=== PATIENT | female | born 1930 | race Caucasian/White ===

== ENCOUNTER 2017-07-21 08:18 | Emergency (ER) | payer MEDICARE, MEDICAID ==
[~2017-07-21] VITALS: Ht 152.4 cm; Wt 52.0 kg
[2017-07-21 09:07] LABS: BASOPHILS % (AUTO) 0.4 % (0-1); EOSINOPHILS # (AUTO) 0.1 X10'3 (0-0.9); HEMATOCRIT 36.7 % (35.0-45.0); HEMOGLOBIN 12.5 g/dl (12.0-16.0); LYMPHOCYTES % (AUTO) 24.4 % (21-51); MEAN CORPUSCULAR HEMOGLOBIN 31.7 PG (27.0-31.0); MEAN CORPUSCULAR VOLUME 93.4 FL (78-98); MEAN PLATELET VOLUME 6.7 FL (7.4-10.4); MONOCYTES # (AUTO) 0.3 X10'3 (0-0.9); MONOCYTES % (AUTO) 7.5 % (2-12); NEUTROPHILS # (AUTO) 2.6 X10'3 (1.8-7.7); NEUTROPHILS % (AUTO) 65.7 % (42-75); PLATELET COUNT 221 X10'3 (140-440); RED BLOOD COUNT 3.93 X10'6 (4.20-5.60); RED CELL DISTRIBUTION WIDTH 13.4 % (11.5-14.5)
[2017-07-21] MEDS ORDERED: normal saline 1000ML IV soln IVB ONE (09:10)
[2017-07-21 09:15] LABS: PARTIAL THROMBOPLASTIN TIME 27 SECONDS (22-32); PROTHROMBIN TIME 10.6 SECONDS (9.0-12.0)
[2017-07-21 09:20] LABS: ALANINE AMINOTRANSFERASE 27 U/L (12-78); ALBUMIN 3.5 G/DL (3.4-5.0); ALKALINE PHOSPHATASE 71 IU/L (46-116); ANION GAP 2 (8-16); ASPARTATE AMINO TRANSFERASE 25 U/L (10-37); BILIRUBIN,TOTAL 0.5 MG/DL (0.1-1.0); BLOOD UREA NITROGEN 20 MG/DL (7-18); BUN/CREATININE RATIO 23.5 (6.6-38.0); CALCIUM 9.2 MG/DL (8.5-10.1); CHLORIDE 100 MMOL/L (99-107); CREATININE 0.85 MG/DL (0.40-0.90); GLUCOSE 104 MG/DL (70-104); POTASSIUM 3.9 MMOL/L (3.5-5.1); SODIUM 136 MMOL/L (135-145); TOTAL CARBON DIOXIDE 34.2 MMOL/L (24-32); TOTAL PROTEIN 7.1 G/DL (6.4-8.2); eGFR 64 ML/MIN
[2017-07-21 14:00] VITALS: BP 176/94
== END 2017-07-21 11:11 | disposition home or self-care (01) ==
LOC: ER 08:19
DX: E86.0 Dehydration (principal); I95.9 Hypotension, unspecified; Z90.49 Acquired absence of other specified parts of digestive tract; Z98.890 Other specified postprocedural states; Z60.2 Problems related to living alone; Z88.0 Allergy status to penicillin; Z88.8 Allergy status to other drugs, medicaments and biological substances
CPT/HCPCS: 36415; 70450; 71045; 80053; 84484; 85025; 85610; 85730; 93005; 96360; 96361; 99285; J7030

== ENCOUNTER 2017-09-06 09:27 | Emergency (ER) | payer MEDICARE, MEDICAID ==
[~2017-09-06] VITALS: Ht 154.9 cm; Wt 53.0 kg
[2017-09-06 10:32] VITALS: BP 118/53
== END 2017-09-06 10:34 | disposition home or self-care (01) ==
LOC: ER 09:27
DX: I10 Essential (primary) hypertension (principal); Z90.49 Acquired absence of other specified parts of digestive tract; Z98.890 Other specified postprocedural states; Z60.2 Problems related to living alone; Z88.0 Allergy status to penicillin; Z88.6 Allergy status to analgesic agent; Z88.8 Allergy status to other drugs, medicaments and biological substances
CPT/HCPCS: 99281; 99285

== ENCOUNTER 2017-09-28 18:19 | Inpatient (IN) | payer MEDICARE, MEDICAID ==
[~2017-09-28] VITALS: Ht 539.5 cm; Wt 50.2 kg
[2017-09-28 18:46] LABS: BASOPHILS % (AUTO) 0.2 % (0-1); EOSINOPHILS # (AUTO) 0.1 X10'3 (0-0.9); EOSINOPHILS % (AUTO) 1.5 % (0-6); HEMATOCRIT 36.3 % (35.0-45.0); HEMOGLOBIN 12.6 g/dl (12.0-16.0); LYMPHOCYTES # (AUTO) 1.4 X10'3 (1.1-4.8); MEAN CORPUSCULAR HEMOGLOBIN 32.2 PG (27.0-31.0); MEAN CORPUSCULAR HGB CONC 34.7 % (33.0-36.5); MEAN CORPUSCULAR VOLUME 92.8 FL (78-98); MEAN PLATELET VOLUME 7.2 FL (7.4-10.4); MONOCYTES # (AUTO) 0.4 X10'3 (0-0.9); MONOCYTES % (AUTO) 8.2 % (2-12); NEUTROPHILS # (AUTO) 2.7 X10'3 (1.8-7.7); NEUTROPHILS % (AUTO) 59.1 % (42-75); PLATELET COUNT 203 X10'3 (140-440); RED BLOOD COUNT 3.92 X10'6 (4.20-5.60); RED CELL DISTRIBUTION WIDTH 13.8 % (11.5-14.5); WHITE BLOOD COUNT 4.6 X10'3 (4.5-11.0)
[2017-09-28 18:58] LABS: PARTIAL THROMBOPLASTIN TIME 27 SECONDS (22-32); PROTHROMBIN TIME 10.7 SECONDS (9.0-12.0)
[2017-09-28 19:01] LABS: ALANINE AMINOTRANSFERASE 28 U/L (12-78); ALBUMIN 3.7 G/DL (3.4-5.0); ALKALINE PHOSPHATASE 79 IU/L (46-116); ANION GAP 4 (8-16); ASPARTATE AMINO TRANSFERASE 26 U/L (10-37); BILIRUBIN,TOTAL 0.5 MG/DL (0.1-1.0); BLOOD UREA NITROGEN 24 MG/DL (7-18); BUN/CREATININE RATIO 28.6 (6.6-38.0); CALCIUM 9.2 MG/DL (8.5-10.1); CHLORIDE 100 MMOL/L (99-107); CREATININE 0.84 MG/DL (0.40-0.90); GLUCOSE 96 MG/DL (70-104); SODIUM 137 MMOL/L (135-145); TOTAL CARBON DIOXIDE 33.5 MMOL/L (24-32); TOTAL PROTEIN 7.3 G/DL (6.4-8.2); eGFR 64 ML/MIN
[2017-09-28] MEDS ORDERED: normal saline 1000ml 1,000 ML IV SCH (20:31)
[2017-09-28] MEDS ORDERED: magnesium hydroxide 30ml (MOM) UD suspension PO PRN (20:35)
[2017-09-28] MEDS ORDERED: HYDROcodone/acetaminophen 5mg/325mg tablet PO PRN (20:35)
[2017-09-28] MEDS ORDERED: metoclopramide 5 mg/ml inj IV PRN (20:35)
[2017-09-28] MEDS ORDERED: diphenhydrAMINE 25mg capsule PO PRN (20:35)
[2017-09-28] MEDS ORDERED: morphine 4 MG/ML inj SYRINge IV PRN ×2 (20:35)
[2017-09-28] MEDS ORDERED: bisacodyl 10mg suppository rectal RC PRN (20:35)
[2017-09-28] MEDS ORDERED: mag hydrox/Alum hydrox/simeth 30ml oral suspension PO PRN (20:35)
[2017-09-28] MEDS ORDERED: acetaminophen 650mg rectal suppository RC PRN (20:35)
[2017-09-28] MEDS ORDERED: HYDROmorphone 1 mg/ml syringe IV PRN ×2 (20:35)
[2017-09-28] MEDS ORDERED: acetaminophen 325mg tablet PO PRN ×2 (20:35)
[2017-09-28] MEDS ORDERED: HYDROcodone/acetaminophen 10/325mg tab PO PRN (20:35)
[2017-09-28] MEDS ORDERED: diphenhydrAMINE 50 mg/ml inj IV PRN (20:35)
[2017-09-28] MEDS ORDERED: ondansetron/PF 4mg/2ml inj IV PRN (20:35)
[2017-09-28] MEDS ORDERED: CAFFEINE CITRATE 60 MG/3 ML injection vial IV PRN (20:45)
[2017-09-28] MEDS ORDERED: regadenoson 0.4mg/5ml syringe IV ONE (20:45)
[2017-09-28] MEDS: metoprolol tartrate 25mg tablet PO SCH (20:45)
[2017-09-28] MEDS ORDERED: nitroGLYCERIN 0.4mg SUBLingual tab SL PRN (20:45)
[2017-09-28] MEDS ORDERED: furosemide 10 MG/1 ML 10ml inj IV SCH (20:45)
[2017-09-28] MEDS ORDERED: metoprolol tartrate 1mg/ml inj IV PRN (20:45)
[2017-09-28] MEDS ORDERED: temazepam 15mg capsule PO PRN (21:00)
[2017-09-28 21:10] LABS: HEMOGLOBIN A1C 6.1 % (4.5-6.2)
[2017-09-28 21:17] LABS: MAGNESIUM 2.1 MG/DL (1.5-2.4); PHOSPHORUS 3.3 MG/DL (2.3-4.5)
[2017-09-28 22:09] LABS: D-DIMER 0.98 MG/L FEU (0-0.50)
[2017-09-28] MEDS ORDERED: CALC-965 PO (22:13)
[2017-09-28] MEDS ORDERED: XAL0.005OS OP (22:13)
[2017-09-28] MEDS ORDERED: DIAZ5TAB4 PO (22:13)
[2017-09-28] MEDS ORDERED: ASCO500C15 PO (22:13)
[2017-09-28] MEDS ORDERED: BRIMONIDINE TARTRATE 0.2% (22:14)
[2017-09-28 23:40] VITALS: BP 168/62
[2017-09-29] VITALS (16 sets, daily range): BP systolic 103–161; BP diastolic 42–75
[2017-09-29] MEDS: hydrALAZINE 20mg/ml inj. IV SCH ×4 (02:19→19:21)
[2017-09-29] MEDS ORDERED: normal saline 1000ml 1,000 ML IV ONE (04:00)
[2017-09-29] MEDS ORDERED: heparin 10,000 units/1 ML INJ IV ONE (04:05)
[2017-09-29] MEDS ORDERED: heparin 10,000 units/1 ML INJ IV PRN (04:05)
[2017-09-29 04:27] LABS: BASOPHILS % (AUTO) 0.7 % (0-1); EOSINOPHILS % (AUTO) 0.7 % (0-6); HEMATOCRIT 37.6 % (35.0-45.0); HEMOGLOBIN 12.9 g/dl (12.0-16.0); LYMPHOCYTES # (AUTO) 2.7 X10'3 (1.1-4.8); LYMPHOCYTES % (AUTO) 40.1 % (21-51); MEAN CORPUSCULAR HEMOGLOBIN 31.6 PG (27.0-31.0); MEAN CORPUSCULAR HGB CONC 34.3 % (33.0-36.5); MEAN CORPUSCULAR VOLUME 92.2 FL (78-98); MEAN PLATELET VOLUME 7.4 FL (7.4-10.4); MONOCYTES # (AUTO) 0.6 X10'3 (0-0.9); MONOCYTES % (AUTO) 8.4 % (2-12); NEUTROPHILS # (AUTO) 3.4 X10'3 (1.8-7.7); NEUTROPHILS % (AUTO) 50.1 % (42-75); PLATELET COUNT 229 X10'3 (140-440); RED BLOOD COUNT 4.08 X10'6 (4.20-5.60); RED CELL DISTRIBUTION WIDTH 13.7 % (11.5-14.5); WHITE BLOOD COUNT 6.8 X10'3 (4.5-11.0)
[2017-09-29 04:39] LABS: INR 1.1 INR; PARTIAL THROMBOPLASTIN TIME 24 SECONDS (22-32); PROTHROMBIN TIME 11.1 SECONDS (9.0-12.0)
[2017-09-29 04:54] LABS: ALANINE AMINOTRANSFERASE 26 U/L (12-78); ALBUMIN 3.7 G/DL (3.4-5.0); ALBUMIN/GLOBULIN RATIO 1.1 (1.1-1.5); ALKALINE PHOSPHATASE 66 IU/L (46-116); ANION GAP 10 (8-16); ASPARTATE AMINO TRANSFERASE 25 U/L (10-37); BILIRUBIN,TOTAL 0.5 MG/DL (0.1-1.0); BLOOD UREA NITROGEN 25 MG/DL (7-18); BUN/CREATININE RATIO 24.3 (6.6-38.0); CALCIUM 9.8 MG/DL (8.5-10.1); CHLORIDE 101 MMOL/L (99-107); CREATININE 1.03 MG/DL (0.40-0.90); GLUCOSE 111 MG/DL (70-104); SODIUM 142 MMOL/L (135-145); TOTAL CARBON DIOXIDE 30.7 MMOL/L (24-32); TOTAL PROTEIN 7.2 G/DL (6.4-8.2); TROPONIN I < 0.04 NG/ML (0.0-0.05); eGFR 51 ML/MIN
[2017-09-29] MEDS ORDERED: magnesium Cl slow-release 64mg tablet PO PRN (05:05)
[2017-09-29] MEDS ORDERED: potassium Cl 40MEQ/NS 500ml 500 ML IV PRN ×2 (05:05)
[2017-09-29] MEDS ORDERED: potassium Cl 20 mEq SR tablet PO PRN ×2 (05:05)
[2017-09-29] MEDS ORDERED: magnesium 4gm in 100ml NS 100 ML IV PRN (05:05)
[2017-09-29 06:54] LABS: BASOPHILS % (AUTO) 0.4 % (0-1); EOSINOPHILS # (AUTO) 0.1 X10'3 (0-0.9); EOSINOPHILS % (AUTO) 1.4 % (0-6); HEMATOCRIT 37.3 % (35.0-45.0); HEMOGLOBIN 12.7 g/dl (12.0-16.0); LYMPHOCYTES # (AUTO) 0.6 X10'3 (1.1-4.8); LYMPHOCYTES % (AUTO) 9.4 % (21-51); MEAN CORPUSCULAR HEMOGLOBIN 31.8 PG (27.0-31.0); MEAN CORPUSCULAR HGB CONC 34.1 % (33.0-36.5); MEAN CORPUSCULAR VOLUME 93.2 FL (78-98); MEAN PLATELET VOLUME 7.2 FL (7.4-10.4); MONOCYTES # (AUTO) 0.4 X10'3 (0-0.9); MONOCYTES % (AUTO) 6.7 % (2-12); NEUTROPHILS # (AUTO) 4.8 X10'3 (1.8-7.7); NEUTROPHILS % (AUTO) 82.1 % (42-75); PLATELET COUNT 198 X10'3 (140-440); RED CELL DISTRIBUTION WIDTH 13.4 % (11.5-14.5); WHITE BLOOD COUNT 5.9 X10'3 (4.5-11.0)
[2017-09-29 07:09] LABS: ALANINE AMINOTRANSFERASE 28 U/L (12-78); ALBUMIN 3.5 G/DL (3.4-5.0); ALBUMIN/GLOBULIN RATIO 1.1 (1.1-1.5); ALKALINE PHOSPHATASE 62 IU/L (46-116); ANION GAP 6 (8-16); ASPARTATE AMINO TRANSFERASE 24 U/L (10-37); BILIRUBIN,TOTAL 0.4 MG/DL (0.1-1.0); BLOOD UREA NITROGEN 24 MG/DL (7-18); BUN/CREATININE RATIO 24.7 (6.6-38.0); CALCIUM 8.9 MG/DL (8.5-10.1); CHLORIDE 103 MMOL/L (99-107); CREATININE 0.97 MG/DL (0.40-0.90); GLUCOSE 106 MG/DL (70-104); POTASSIUM 3.6 MMOL/L (3.5-5.1); SODIUM 142 MMOL/L (135-145); TOTAL CARBON DIOXIDE 32.8 MMOL/L (24-32); TOTAL PROTEIN 6.8 G/DL (6.4-8.2); eGFR 55 ML/MIN
[2017-09-29 07:12] LABS: CHOL/HDL RATIO 2.3 (0.00-4.99); CHOLESTEROL 180 MG/DL (0-200); HDL CHOLESTEROL 80 MG/DL (35-60); LDL CHOLESTEROL 95 MG/DL (50-100); TRIGLYCERIDES 21 MG/DL (20-135)
[2017-09-29] MEDS: heparin, porcine 5000 units/ml vial SQ SCH ×2 (08:00→19:21)
[2017-09-29] MEDS: lisinopril 10 MG tablet PO SCH (08:00)
[2017-09-29] MEDS: metoprolol tartrate 25mg tablet PO SCH (08:00)
[2017-09-29] MEDS: docusate sod 100mg capsule PO SCH ×2 (08:34→19:22)
[2017-09-29] MEDS: atorvastatin 10mg tablet PO SCH (08:35)
[2017-09-29] MEDS: clopidogrel 75mg tablet PO SCH (08:35)
[2017-09-29] MEDS: pantoprazole 40mg Tablet.DR PO SCH (08:35)
[2017-09-29 09:52] LABS: TROPONIN I 0.1 NG/ML (0.0-0.05)
[2017-09-29 11:41] LABS: ABG BASE EXCESS 4.2 mmol/L (-2.0-3.0); ABG HCO3 29.1 mmol/L (22.0-26.0); ABG OXYGEN SATURATION 95.8 % (95-98); ABG PCO2 (T) 44.5 mmHg (32.0-45.0); ABG PH (T) 7.433 (7.350-7.450); ABG PO2 (T) 79.4 mmHg (83-108); ALLEN'S TEST Positive; FCOHb 0.2 % (0.5-1.5); FMetHb 0.2 % (0.3-1.12); FO2Hb 95.4 % (94-100); TOTAL HEMOGLOBIN 13.4 G/dl (12.0-16.0)
[2017-09-29] MEDS ORDERED: regadenoson 0.4mg/5ml syringe IV PRN (12:20)
[2017-09-29] MEDS ORDERED: regadenoson 0.4mg/5ml syringe IV ONE (12:57)
[2017-09-29] MEDS ORDERED: latanoprost 0.005% 2.5ml ophthalmic drops EACHEYE SCH (21:00)
[2017-09-29] MEDS: brimonidine 0.2% 5 ML ophthalmic drops EACHEYE SCH (22:36)
[2017-09-30 03:00] VITALS: BP 136/57
[2017-09-30 03:08] LABS: BASOPHILS % (AUTO) 0.4 % (0-1); EOSINOPHILS # (AUTO) 0.1 X10'3 (0-0.9); EOSINOPHILS % (AUTO) 1.9 % (0-6); HEMATOCRIT 36.6 % (35.0-45.0); HEMOGLOBIN 12.5 g/dl (12.0-16.0); LYMPHOCYTES # (AUTO) 1.5 X10'3 (1.1-4.8); LYMPHOCYTES % (AUTO) 28.7 % (21-51); MEAN CORPUSCULAR HEMOGLOBIN 32.1 PG (27.0-31.0); MEAN CORPUSCULAR HGB CONC 34.1 % (33.0-36.5); MEAN CORPUSCULAR VOLUME 94.3 FL (78-98); MEAN PLATELET VOLUME 7.8 FL (7.4-10.4); MONOCYTES # (AUTO) 0.4 X10'3 (0-0.9); MONOCYTES % (AUTO) 7.2 % (2-12); NEUTROPHILS # (AUTO) 3.2 X10'3 (1.8-7.7); NEUTROPHILS % (AUTO) 61.8 % (42-75); PLATELET COUNT 196 X10'3 (140-440); RED BLOOD COUNT 3.88 X10'6 (4.20-5.60); RED CELL DISTRIBUTION WIDTH 13.6 % (11.5-14.5); WHITE BLOOD COUNT 5.2 X10'3 (4.5-11.0)
[2017-09-30 03:25] LABS: ALANINE AMINOTRANSFERASE 30 U/L (12-78); ALBUMIN 3.1 G/DL (3.4-5.0); ALBUMIN/GLOBULIN RATIO 0.9 (1.1-1.5); ALKALINE PHOSPHATASE 58 IU/L (46-116); ASPARTATE AMINO TRANSFERASE 23 U/L (10-37); BILIRUBIN,TOTAL 0.4 MG/DL (0.1-1.0); BLOOD UREA NITROGEN 24 MG/DL (7-18); BUN/CREATININE RATIO 25.3 (6.6-38.0); CHLORIDE 104 MMOL/L (99-107); CREATININE 0.95 MG/DL (0.40-0.90); GLUCOSE 102 MG/DL (70-104); POTASSIUM 3.7 MMOL/L (3.5-5.1); SODIUM 141 MMOL/L (135-145); TOTAL PROTEIN 6.4 G/DL (6.4-8.2); eGFR 56 ML/MIN
[2017-09-30 03:30] LABS: ANION GAP 5 (8-16); TOTAL CARBON DIOXIDE 32.4 MMOL/L (24-32)
[2017-09-30 06:00] VITALS: BP 89/53
[2017-09-30 06:15] VITALS: BP_SYST 154; BP_SYST 168; BP_DIAS 58; BP_DIAS 65
[2017-09-30] MEDS: atorvastatin 10mg tablet PO SCH (07:53)
[2017-09-30] MEDS: lisinopril 10 MG tablet PO SCH (07:53)
[2017-09-30] MEDS: metoprolol tartrate 25mg tablet PO SCH (07:53)
[2017-09-30] MEDS: docusate sod 100mg capsule PO SCH (07:53)
[2017-09-30] MEDS: clopidogrel 75mg tablet PO SCH (07:53)
[2017-09-30] MEDS: pantoprazole 40mg Tablet.DR PO SCH (07:54)
[2017-09-30] MEDS: brimonidine 0.2% 5 ML ophthalmic drops EACHEYE SCH (07:55)
[2017-09-30] MEDS ORDERED: furosemide 10 MG/1 ML 10ml inj IV SCH (08:00)
[2017-09-30] MEDS ORDERED: NITR0.4T51 SL (09:35)
[2017-09-30] MEDS ORDERED: LISI10TA4 PO (09:38)
[2017-09-30 11:00] VITALS: BP 114/75
== END 2017-09-30 15:30 | disposition home health service (06) | DRG 308 ==
LOC: ER 18:19 → ED HOLD 20:31 → EDBEDREQ 22:29 → SUR 3N 22:58 → PCU 3S 09-29 04:27
PROVIDERS: ADMIT Family Medicine; ATTEND Family Medicine
PROC: 4A02XM4 Measurement of Cardiac Total Activity, External Approach (ICD-10-PCS; principal; 2017-09-29)
PROC: 3E033HZ Introduction of Radioactive Substance into Peripheral Vein, Percutaneous Approach (ICD-10-PCS; 2017-09-29)
DX: I48.91 Unspecified atrial fibrillation (principal); I50.33 Acute on chronic diastolic (congestive) heart failure; N17.0 Acute kidney failure with tubular necrosis; I16.9 Hypertensive crisis, unspecified; E86.0 Dehydration; E87.6 Hypokalemia; I11.0 Hypertensive heart disease with heart failure; Z60.2 Problems related to living alone; I20.9 Angina pectoris, unspecified; R09.02 Hypoxemia; R55 Syncope and collapse; T46.3X5A Adverse effect of coronary vasodilators, initial encounter; Z90.49 Acquired absence of other specified parts of digestive tract; Z88.6 Allergy status to analgesic agent; Z88.1 Allergy status to other antibiotic agents; Z88.0 Allergy status to penicillin; Z88.8 Allergy status to other drugs, medicaments and biological substances; Z79.899 Other long term (current) drug therapy; Z83.3 Family history of diabetes mellitus; Z82.49 Family history of ischemic heart disease and other diseases of the circulatory system; Y92.238 Other place in hospital as the place of occurrence of the external cause
CPT/HCPCS: 36415; 36600; 71045; 78452; 80053; 80061; 82803; 82948; 83036; 83735; 83880; 84100; 84443; 84484; 85018; 85025; 85379; 85610; 85730; 87070; 93005; 93017; 93306; 97161; 97530; 99285; A4315; A9500; J0360; J1644; J1940; J2270; J2405; J3480; J7030

== ENCOUNTER 2018-01-20 10:19 | Emergency (ER) | payer MEDICARE, MEDICAID ==
[~2018-01-20] VITALS: Ht 153.7 cm; Wt 50.0 kg
[~2018-01-20 10:19] MED LIST: ASCO500C15 PO; BRIMONIDINE TARTRATE 0.2% OP; CALC-965 PO; DIAZ5TAB4 PO; LISI10TA4 PO; NITR0.4T51 SL; XAL0.005OS OP
[2018-01-20 10:54] LABS: BASOPHILS % (AUTO) 0.5 % (0-1); EOSINOPHILS % (AUTO) 0.3 % (0-6); HEMATOCRIT 40.1 % (35.0-45.0); HEMOGLOBIN 13.4 g/dl (12.0-16.0); LYMPHOCYTES # (AUTO) 0.9 X10'3 (1.1-4.8); LYMPHOCYTES % (AUTO) 17.8 % (21-51); MEAN CORPUSCULAR HEMOGLOBIN 31.7 PG (27.0-31.0); MEAN CORPUSCULAR HGB CONC 33.6 % (33.0-36.5); MEAN CORPUSCULAR VOLUME 94.5 FL (78-98); MEAN PLATELET VOLUME 7.3 FL (7.4-10.4); MONOCYTES # (AUTO) 0.3 X10'3 (0-0.9); NEUTROPHILS # (AUTO) 3.6 X10'3 (1.8-7.7); NEUTROPHILS % (AUTO) 74.4 % (42-75); PLATELET COUNT 259 X10'3 (140-440); RED BLOOD COUNT 4.24 X10'6 (4.20-5.60); RED CELL DISTRIBUTION WIDTH 14.2 % (11.5-14.5); WHITE BLOOD COUNT 4.8 X10'3 (4.5-11.0)
[2018-01-20 11:08] LABS: ALANINE AMINOTRANSFERASE 37 U/L (12-78); ALBUMIN 3.6 G/DL (3.4-5.0); ALBUMIN/GLOBULIN RATIO 0.9 (1.1-1.5); ALKALINE PHOSPHATASE 102 IU/L (46-116); ANION GAP 5 (8-16); ASPARTATE AMINO TRANSFERASE 32 U/L (10-37); BILIRUBIN,TOTAL 0.4 MG/DL (0.1-1.0); BLOOD UREA NITROGEN 24 MG/DL (7-18); BUN/CREATININE RATIO 27.3 (6.6-38.0); CALCIUM 9.2 MG/DL (8.5-10.1); CHLORIDE 102 MMOL/L (99-107); CREATININE 0.88 MG/DL (0.40-0.90); GLUCOSE 90 MG/DL (70-104); MAGNESIUM 2.1 MG/DL (1.5-2.4); PHOSPHORUS 3.1 MG/DL (2.3-4.5); POTASSIUM 3.5 MMOL/L (3.5-5.1); SODIUM 142 MMOL/L (135-145); TOTAL CARBON DIOXIDE 35.2 MMOL/L (24-32); TOTAL PROTEIN 7.5 G/DL (6.4-8.2); eGFR 61 ML/MIN
[2018-01-20 11:12] LABS: INR 1.1 INR; PARTIAL THROMBOPLASTIN TIME 31 SECONDS (22-32); PROTHROMBIN TIME 10.9 SECONDS (9.0-12.0)
[2018-01-20] MEDS ORDERED: VIT B12 PO (13:29)
[2018-01-20] MEDS ORDERED: APIX5TAB3 PO (13:29)
[2018-01-20] MEDS ORDERED: [UNRECOGNIZED DRUG - CODE] PO (13:29)
[2018-01-20] MEDS ORDERED: OMEG-128 PO (13:29)
[2018-01-20] MEDS ORDERED: PHEN16.241 PO (13:29)
[2018-01-20] MEDS ORDERED: FURO-150 PO (13:29)
[2018-01-20] MEDS ORDERED: THY15T PO (13:29)
[2018-01-20] MEDS ORDERED: MAGN400C PO (13:29)
[2018-01-20] MEDS ORDERED: MULT-1141 PO (13:29)
[2018-01-20] MEDS ORDERED: METH10005 PO (13:29)
[2018-01-20] MEDS ORDERED: BIOT50002 PO (13:29)
[2018-01-20 14:11] VITALS: BP 164/82
== END 2018-01-20 14:12 | disposition home or self-care (01) ==
LOC: ER 10:20
DX: I63.9 Cerebral infarction, unspecified (principal); I10 Essential (primary) hypertension; Z86.73 Personal history of transient ischemic attack (TIA), and cerebral infarction without residual deficits; Z90.49 Acquired absence of other specified parts of digestive tract; Z88.0 Allergy status to penicillin; Z88.6 Allergy status to analgesic agent; Z88.1 Allergy status to other antibiotic agents; Z88.8 Allergy status to other drugs, medicaments and biological substances; Z79.899 Other long term (current) drug therapy
CPT/HCPCS: 36415; 70450; 80053; 82948; 83735; 84100; 84484; 85025; 85610; 85730; 93005; 99284

== ENCOUNTER 2018-07-04 17:19 | Emergency (ER) | payer MEDICARE, MEDICAID ==
[~2018-07-04] VITALS: Ht 154.9 cm; Wt 52.0 kg
[~2018-07-04 17:19] MED LIST changes: +APIX5TAB3 PO; +BIOT50002 PO; +FURO-150 PO; -LISI10TA4 PO; +MAGN400C PO; +METH10005 PO; +MULT-1141 PO; -NITR0.4T51 SL; +OMEG-128 PO; +PHEN16.241 PO; +THY15T PO; +VIT B12 PO; +[UNRECOGNIZED DRUG - CODE] PO
[2018-07-04 17:22] VITALS: BP 142/60
[2018-07-04 17:59] LABS: EOSINOPHILS # (AUTO) 0.1 X10'3 (0-0.9); EOSINOPHILS % (AUTO) 1.5 % (0-6); HEMATOCRIT 36.3 % (35.0-45.0); HEMOGLOBIN 12.3 g/dl (12.0-16.0); LYMPHOCYTES # (AUTO) 1.5 X10'3 (1.1-4.8); LYMPHOCYTES % (AUTO) 36.3 % (21-51); MEAN CORPUSCULAR HEMOGLOBIN 31.7 PG (27.0-31.0); MEAN CORPUSCULAR VOLUME 93.2 FL (78-98); MEAN PLATELET VOLUME 7.7 FL (7.4-10.4); MONOCYTES # (AUTO) 0.4 X10'3 (0-0.9); MONOCYTES % (AUTO) 9.9 % (2-12); NEUTROPHILS # (AUTO) 2.1 X10'3 (1.8-7.7); NEUTROPHILS % (AUTO) 51.3 % (42-75); PLATELET COUNT 187 X10'3 (140-440); RED CELL DISTRIBUTION WIDTH 13.9 % (11.5-14.5); WHITE BLOOD COUNT 4.1 X10'3 (4.5-11.0)
[2018-07-04 18:14] LABS: ALANINE AMINOTRANSFERASE 33 U/L (12-78); ALBUMIN 3.6 G/DL (3.4-5.0); ALBUMIN/GLOBULIN RATIO 1.1 (1.1-1.5); ALKALINE PHOSPHATASE 88 IU/L (46-116); ANION GAP 7 (8-16); ASPARTATE AMINO TRANSFERASE 27 U/L (10-37); BILIRUBIN,TOTAL 0.3 MG/DL (0.1-1.0); BLOOD UREA NITROGEN 24 MG/DL (7-18); BUN/CREATININE RATIO 28.6 (6.6-38.0); CALCIUM 9.1 MG/DL (8.5-10.1); CHLORIDE 100 MMOL/L (99-107); CREATININE 0.84 MG/DL (0.40-0.90); GLUCOSE 90 MG/DL (70-104); POTASSIUM 3.8 MMOL/L (3.5-5.1); SODIUM 141 MMOL/L (135-145); TOTAL CARBON DIOXIDE 34.2 MMOL/L (24-32); TOTAL PROTEIN 6.9 G/DL (6.4-8.2); eGFR 64 ML/MIN
[2018-07-04 18:16] LABS: INR 1.1 INR; PARTIAL THROMBOPLASTIN TIME 31 SECONDS (22-32)
== END 2018-07-04 20:53 | disposition home or self-care (01) ==
LOC: ER 17:20
DX: R07.89 Other chest pain (principal); I10 Essential (primary) hypertension; M79.7 Fibromyalgia; Z86.73 Personal history of transient ischemic attack (TIA), and cerebral infarction without residual deficits; Z98.890 Other specified postprocedural states; Z90.49 Acquired absence of other specified parts of digestive tract; Z88.0 Allergy status to penicillin; Z88.6 Allergy status to analgesic agent; Z88.8 Allergy status to other drugs, medicaments and biological substances; Z88.1 Allergy status to other antibiotic agents; Z79.899 Other long term (current) drug therapy
CPT/HCPCS: 36415; 71045; 80053; 84484; 85025; 85610; 85730; 93005; 99284

== ENCOUNTER 2019-04-23 10:13 | Emergency (ER) | payer MEDICARE, MEDICAID ==
[~2019-04-23] VITALS: Ht 152.4 cm; Wt 47.7 kg
[~2019-04-23 10:13] MED LIST changes: -BRIMONIDINE TARTRATE 0.2% OP; +DIAZ2TAB3 PO; -DIAZ5TAB4 PO; +MECL-184 PO; -METH10005 PO
[2019-04-23 12:46] LABS: BASOPHILS # (AUTO) 0.1 X10'3 (0-0.2); EOSINOPHILS # (AUTO) 0.1 X10'3 (0-0.9); EOSINOPHILS % (AUTO) 1.7 % (0-6); HEMATOCRIT 38.7 % (35.0-45.0); HEMOGLOBIN 13.3 g/dl (12.0-16.0); LYMPHOCYTES # (AUTO) 1.3 X10'3 (1.1-4.8); LYMPHOCYTES % (AUTO) 23.2 % (21-51); MEAN CORPUSCULAR HEMOGLOBIN 32.3 PG (27.0-31.0); MEAN CORPUSCULAR HGB CONC 34.3 g/dL (33.0-36.5); MEAN CORPUSCULAR VOLUME 94.4 FL (78-98); MEAN PLATELET VOLUME 6.7 FL (7.4-10.4); MONOCYTES # (AUTO) 0.4 X10'3 (0-0.9); NEUTROPHILS # (AUTO) 3.6 X10'3 (1.8-7.7); NEUTROPHILS % (AUTO) 67.1 % (42-75); PLATELET COUNT 374 X10'3 (140-440); RED CELL DISTRIBUTION WIDTH 13.8 % (11.5-14.5); WHITE BLOOD COUNT 5.4 X10'3 (4.5-11.0)
[2019-04-23 13:01] LABS: ALANINE AMINOTRANSFERASE 23 U/L (12-78); ALBUMIN 3.5 G/DL (3.4-5.0); ALBUMIN/GLOBULIN RATIO 0.9 (1.1-1.5); ALKALINE PHOSPHATASE 85 IU/L (46-116); ANION GAP 7 (8-16); ASPARTATE AMINO TRANSFERASE 30 U/L (10-37); BILIRUBIN,TOTAL 0.4 MG/DL (0.1-1.0); BLOOD UREA NITROGEN 18 MG/DL (7-18); BUN/CREATININE RATIO 20.5 (6.6-38.0); CALCIUM 9.4 MG/DL (8.5-10.1); CHLORIDE 101 MMOL/L (99-107); CREATININE 0.88 MG/DL (0.40-0.90); GLUCOSE 94 MG/DL (70-104); POTASSIUM 4.2 MMOL/L (3.5-5.1); SODIUM 141 MMOL/L (135-145); TOTAL CARBON DIOXIDE 33.1 MMOL/L (24-32); TOTAL PROTEIN 7.4 G/DL (6.4-8.2); eGFR 61 ML/MIN
[2019-04-23 13:45] LABS: CLARITY,URINE CLEAR (Clear); COLOR,URINE STRAW (Yellow); GLUCOSE, URINE NEGATIVE (Neg); KETONES,URINE NEGATIVE (Neg); LEUKOCYTE ESTERASE ,URINE NEGATIVE (Neg); NITRITES, URINE NEGATIVE (Neg); OCCULT BLOOD,URINE NEGATIVE (Neg); PH,URINE 7.5 (4.8-8.0); PROTEIN,URINE NEGATIVE (Neg); UROBILINOGEN,URINE 0.2 E.U/dL (0.2-1.0)
[2019-04-23 13:50] LABS: UA COLLECTION TYPE CLN CATCH MIDSTREAM
[2019-04-23 16:21] VITALS: BP 154/67
== END 2019-04-23 16:26 | disposition home or self-care (01) ==
LOC: ER 10:13
DX: R05 Cough (principal); R53.1 Weakness; I10 Essential (primary) hypertension; M79.7 Fibromyalgia; Z86.73 Personal history of transient ischemic attack (TIA), and cerebral infarction without residual deficits; Z90.49 Acquired absence of other specified parts of digestive tract; Z98.890 Other specified postprocedural states; Z88.0 Allergy status to penicillin; Z88.2 Allergy status to sulfonamides; Z88.1 Allergy status to other antibiotic agents; Z88.8 Allergy status to other drugs, medicaments and biological substances; Z79.899 Other long term (current) drug therapy; Z79.01 Long term (current) use of anticoagulants
CPT/HCPCS: 36415; 71045; 80053; 81003; 83605; 84145; 84484; 85025; 87040; 93005; 99285

== ENCOUNTER 2019-08-11 07:31 | Emergency (ER) | payer MEDICARE, MEDICAID ==
[~2019-08-11] VITALS: Ht 152.4 cm; Wt 47.7 kg
--- NOTE | 2019-08-11 08:04 | NUR ---
assisted pt to [facility]
[2019-08-11 08:09] LABS: BASOPHILS % (AUTO) 0.8 % (0-1); EOSINOPHILS # (AUTO) 0.1 X10'3 (0-0.9); EOSINOPHILS % (AUTO) 1.8 % (0-6); HEMATOCRIT 38.2 % (35.0-45.0); LYMPHOCYTES # (AUTO) 1.9 X10'3 (1.1-4.8); MEAN CORPUSCULAR HEMOGLOBIN 32.4 PG (27.0-31.0); MEAN CORPUSCULAR VOLUME 95.2 FL (78-98); MEAN PLATELET VOLUME 7.1 FL (7.4-10.4); MONOCYTES # (AUTO) 0.5 X10'3 (0-0.9); MONOCYTES % (AUTO) 8.6 % (2-12); NEUTROPHILS # (AUTO) 2.8 X10'3 (1.8-7.7); NEUTROPHILS % (AUTO) 52.8 % (42-75); PLATELET COUNT 195 X10'3 (140-440); RED BLOOD COUNT 4.01 X10'6 (4.20-5.60); RED CELL DISTRIBUTION WIDTH 13.8 % (11.5-14.5); WHITE BLOOD COUNT 5.4 X10'3 (4.5-11.0)
[2019-08-11 08:10] LABS: ALANINE AMINOTRANSFERASE 19 U/L (12-78); ALBUMIN 3.7 G/DL (3.4-5.0); ALBUMIN/GLOBULIN RATIO 1.1 (1.1-1.5); ALKALINE PHOSPHATASE 99 IU/L (46-116); ANION GAP 8 (8-16); ASPARTATE AMINO TRANSFERASE 23 U/L (10-37); BILIRUBIN,TOTAL 0.5 MG/DL (0.1-1.0); BLOOD UREA NITROGEN 24 MG/DL (7-18); BUN/CREATININE RATIO 26.1 (6.6-38.0); CALCIUM 9.5 MG/DL (8.5-10.1); CHLORIDE 101 MMOL/L (99-107); CREATININE 0.92 MG/DL (0.40-0.90); GLUCOSE 102 MG/DL (70-104); POTASSIUM 3.8 MMOL/L (3.5-5.1); SODIUM 139 MMOL/L (135-145); TOTAL CARBON DIOXIDE 29.9 MMOL/L (24-32); TOTAL PROTEIN 7.2 G/DL (6.4-8.2); eGFR 58 ML/MIN
[2019-08-11 08:18] LABS: MAGNESIUM 2.3 MG/DL (1.5-2.4)
[2019-08-11] MEDS ORDERED: normal saline 1000ML IV soln IVB ONE (08:40)
--- NOTE | 2019-08-11 08:56 | NUR ---
Per daughter, Katelyn, pt's other daughter Fina will be able to pick her up.
[2019-08-11 09:33] VITALS: BP 182/74
== END 2019-08-11 09:36 | disposition home or self-care (01) ==
LOC: ER 07:34
DX: E86.0 Dehydration (principal); R07.89 Other chest pain; G20 Parkinson's disease; I10 Essential (primary) hypertension; Z86.73 Personal history of transient ischemic attack (TIA), and cerebral infarction without residual deficits; Z60.2 Problems related to living alone; Z88.0 Allergy status to penicillin; Z88.2 Allergy status to sulfonamides; Z88.8 Allergy status to other drugs, medicaments and biological substances; Z79.01 Long term (current) use of anticoagulants; Z79.899 Other long term (current) drug therapy
CPT/HCPCS: 36415; 71045; 80053; 83735; 83880; 84484; 85025; 93005; 96360; 99285; J7030

== ENCOUNTER 2019-10-15 14:31 | Emergency (ER) | payer MEDICARE, MEDICAID ==
[~2019-10-15] VITALS: Ht 152.4 cm; Wt 52.5 kg
[2019-10-15 16:14] LABS: EOSINOPHILS # (AUTO) 0.1 X10'3 (0-0.9); EOSINOPHILS % (AUTO) 1.4 % (0-6); HEMATOCRIT 37.9 % (35.0-45.0); HEMOGLOBIN 12.8 g/dl (12.0-16.0); LYMPHOCYTES # (AUTO) 1.2 X10'3 (1.1-4.8); MEAN CORPUSCULAR HEMOGLOBIN 32.2 PG (27.0-31.0); MEAN CORPUSCULAR HGB CONC 33.7 g/dL (33.0-36.5); MEAN CORPUSCULAR VOLUME 95.7 FL (78-98); MEAN PLATELET VOLUME 7.3 FL (7.4-10.4); MONOCYTES # (AUTO) 0.4 X10'3 (0-0.9); MONOCYTES % (AUTO) 8.6 % (2-12); NEUTROPHILS # (AUTO) 2.7 X10'3 (1.8-7.7); PLATELET COUNT 203 X10'3 (140-440); RED BLOOD COUNT 3.96 X10'6 (4.20-5.60); RED CELL DISTRIBUTION WIDTH 13.4 % (11.5-14.5); WHITE BLOOD COUNT 4.4 X10'3 (4.5-11.0)
[2019-10-15] MEDS ORDERED: furosemide 10 MG/1 ML 10ml inj IV ONE (16:20)
[2019-10-15] MEDS ORDERED: nitroGLYCERIN 0.4mg SUBLingual tab SL PRN (16:20)
[2019-10-15 16:29] LABS: ALANINE AMINOTRANSFERASE 10 U/L (12-78); ALBUMIN 3.5 G/DL (3.4-5.0); ALBUMIN/GLOBULIN RATIO 0.9 (1.1-1.5); ALKALINE PHOSPHATASE 99 IU/L (46-116); ANION GAP 4 (8-16); ASPARTATE AMINO TRANSFERASE 25 U/L (10-37); BILIRUBIN,TOTAL 0.4 MG/DL (0.1-1.0); BLOOD UREA NITROGEN 27 MG/DL (7-18); BUN/CREATININE RATIO 35.1 (6.6-38.0); CALCIUM 8.9 MG/DL (8.5-10.1); CHLORIDE 99 MMOL/L (99-107); CREATININE 0.77 MG/DL (0.40-0.90); GLUCOSE 94 MG/DL (70-104); POTASSIUM 4.1 MMOL/L (3.5-5.1); SODIUM 136 MMOL/L (135-145); TOTAL CARBON DIOXIDE 33.1 MMOL/L (24-32); TOTAL PROTEIN 7.2 G/DL (6.4-8.2); eGFR 71 ML/MIN
--- NOTE | 2019-10-15 17:00 | NUR ---
PT IV START AND IV LASIX AT BEDSIDE UNABLE TO START IV PT IS IN MIDDLE OF VASCULAR STUDY,RELIGIOUS EDUCATION DIRECTOR AT BEDSIDE,NO DISTRESS NOTED WILL CONT TO MONITOR.
[2019-10-15 17:04] LABS: D-DIMER < 0.19 MG/L FEU (0-0.50)
--- NOTE | 2019-10-15 18:35 | NUR ---
funmi conner at beds to reeval. states to pt and daugher that he anticipated dc once her 3 hr trop is resulted (being drawn now). pt just had 3 episodes of sharp cp over the past 20 min. PA to order nitro past as pt had refused nitro tab earlier. no cp at this moment. bp 193/76
[2019-10-15] MEDS ORDERED: nitroGLYCERIN 1gm ointment UD TP ONE (18:40)
[2019-10-15] MEDS ORDERED: POTA10TA19 PO (19:08)
[2019-10-15] MEDS ORDERED: FURO-150 PO (19:08)
[2019-10-15 19:50] VITALS: BP 147/66
[2019-10-20] MEDS ORDERED: THYR90TA PO (22:31)
[2019-10-20] MEDS ORDERED: CARB1TAB23 PO (22:31)
[2019-10-20] MEDS ORDERED: RIVA15TA PO (22:31)
[2019-10-22] MEDS ORDERED: HYDR-4383 PO (11:49)
[2019-10-22] MEDS ORDERED: ENTA200T23 PO (11:49)
[2019-10-22] MEDS ORDERED: MIDO2.5T14 PO (11:49)
== END 2019-10-15 19:49 | disposition home or self-care (01) ==
LOC: ER 14:32
DX: I50.9 Heart failure, unspecified (principal); I11.0 Hypertensive heart disease with heart failure; G20 Parkinson's disease; Z86.718 Personal history of other venous thrombosis and embolism; Z86.73 Personal history of transient ischemic attack (TIA), and cerebral infarction without residual deficits; Z98.890 Other specified postprocedural states; Z90.49 Acquired absence of other specified parts of digestive tract; Z60.2 Problems related to living alone; Z88.0 Allergy status to penicillin; Z88.2 Allergy status to sulfonamides; Z88.8 Allergy status to other drugs, medicaments and biological substances; Z79.01 Long term (current) use of anticoagulants; Z79.899 Other long term (current) drug therapy
CPT/HCPCS: 36415; 71045; 80053; 83880; 84484; 85025; 85379; 93005; 93971; 96374; 99285; J1940

== ENCOUNTER 2019-12-11 08:15 | Emergency (ER) | payer MEDICARE, MEDICAID ==
[~2019-12-11] VITALS: Ht 160 cm; Wt 55.0 kg
[~2019-12-11 08:15] MED LIST changes: -APIX5TAB3 PO; -ASCO500C15 PO; +CARB1TAB23 PO; -FURO-150 PO; +HYDR-4383 PO; -MECL-184 PO; +MIDO2.5T14 PO; -PHEN16.241 PO; +RIVA15TA PO; -THY15T PO; +THYR90TA PO
[2019-12-11] MEDS ORDERED: normal saline 1000ml 1,000 ML IV ONE (08:40)
[2019-12-11 08:59] LABS: BASOPHILS % (AUTO) 1.1 % (0-1); EOSINOPHILS # (AUTO) 0.1 X10'3 (0-0.9); EOSINOPHILS % (AUTO) 1.1 % (0-6); HEMATOCRIT 37.3 % (35.0-45.0); HEMOGLOBIN 12.9 g/dl (12.0-16.0); LYMPHOCYTES # (AUTO) 1.3 X10'3 (1.1-4.8); MEAN CORPUSCULAR HGB CONC 34.5 g/dL (33.0-36.5); MEAN CORPUSCULAR VOLUME 95.6 FL (78-98); MEAN PLATELET VOLUME 7.1 FL (7.4-10.4); MONOCYTES # (AUTO) 0.4 X10'3 (0-0.9); MONOCYTES % (AUTO) 8.7 % (2-12); NEUTROPHILS # (AUTO) 2.8 X10'3 (1.8-7.7); NEUTROPHILS % (AUTO) 60.1 % (42-75); PLATELET COUNT 206 X10'3 (140-440); RED CELL DISTRIBUTION WIDTH 14.5 % (11.5-14.5); WHITE BLOOD COUNT 4.6 X10'3 (4.5-11.0)
[2019-12-11 09:03] LABS: ALBUMIN 3.6 G/DL (3.4-5.0); ANION GAP 5 (8-16); BLOOD UREA NITROGEN 16 MG/DL (7-18); BUN/CREATININE RATIO 18.8 (6.6-38.0); CALCIUM 9.5 MG/DL (8.5-10.1); CHLORIDE 100 MMOL/L (99-107); CREATININE 0.85 MG/DL (0.40-0.90); GLUCOSE 96 MG/DL (70-104); POTASSIUM 3.5 MMOL/L (3.5-5.1); SODIUM 138 MMOL/L (135-145); TOTAL CARBON DIOXIDE 33.4 MMOL/L (24-32); eGFR 63 ML/MIN
[2019-12-11 09:15] LABS: CLARITY,URINE CLEAR (Clear); COLOR,URINE YELLOW (Yellow); GLUCOSE, URINE NEGATIVE (Neg); KETONES,URINE NEGATIVE (Neg); LEUKOCYTE ESTERASE ,URINE NEGATIVE (Neg); NITRITES, URINE NEGATIVE (Neg); OCCULT BLOOD,URINE NEGATIVE (Neg); PH,URINE 8.5 (4.8-8.0); PROTEIN,URINE NEGATIVE (Neg); UA COLLECTION TYPE VOIDED; UROBILINOGEN,URINE 0.2 E.U/dL (0.2-1.0)
--- NOTE | 2019-12-11 10:07 | NUR ---
Checked patient who is resting comfortably.
[2019-12-11] MEDS ORDERED: iohexol 300mg/ml 100ml inj. ONE (10:24)
--- NOTE | 2019-12-11 13:16 | NUR ---
Gave patient a leg bag for her catheter and intructed her on how to clean it and adjust the fit. Patient verbalizes understanding.
[2019-12-11 13:22] VITALS: BP 147/75
[2019-12-11] MEDS ORDERED: HYDROcodone/acetaminophen 5mg/325mg tablet PO ONE (20:00)
== END 2019-12-11 13:59 | disposition home or self-care (01) ==
LOC: ER 08:16
DX: C64.2 Malignant neoplasm of left kidney, except renal pelvis (principal); R33.9 Retention of urine, unspecified; R19.7 Diarrhea, unspecified; G20 Parkinson's disease; I48.91 Unspecified atrial fibrillation; I11.0 Hypertensive heart disease with heart failure; I50.9 Heart failure, unspecified; Z86.73 Personal history of transient ischemic attack (TIA), and cerebral infarction without residual deficits; Z86.718 Personal history of other venous thrombosis and embolism; Z90.49 Acquired absence of other specified parts of digestive tract; Z98.890 Other specified postprocedural states; Z60.2 Problems related to living alone; Z88.0 Allergy status to penicillin; Z88.2 Allergy status to sulfonamides; Z88.8 Allergy status to other drugs, medicaments and biological substances; Z79.01 Long term (current) use of anticoagulants; Z79.899 Other long term (current) drug therapy
CPT/HCPCS: 36415; 51702; 74177; 80048; 81003; 85025; 93005; 96360; 99285; J7030; Q9967

== ENCOUNTER 2019-12-12 09:25 | Emergency (ER) | payer MEDICARE, MEDICAID ==
[~2019-12-12] VITALS: Ht 152.4 cm; Wt 50.0 kg
[2019-12-12 09:26] VITALS: BP 154/59
== END 2019-12-12 10:05 | disposition home or self-care (01) ==
LOC: ER 09:25
DX: T83.098A Other mechanical complication of other urinary catheter, initial encounter (principal); I48.91 Unspecified atrial fibrillation; I11.0 Hypertensive heart disease with heart failure; I50.9 Heart failure, unspecified; M79.7 Fibromyalgia; Z86.73 Personal history of transient ischemic attack (TIA), and cerebral infarction without residual deficits; Z86.718 Personal history of other venous thrombosis and embolism; Z90.49 Acquired absence of other specified parts of digestive tract; Z98.890 Other specified postprocedural states; Z60.2 Problems related to living alone; Z88.0 Allergy status to penicillin; Z88.2 Allergy status to sulfonamides; Z88.8 Allergy status to other drugs, medicaments and biological substances; Z79.899 Other long term (current) drug therapy; Y84.6 Urinary catheterization as the cause of abnormal reaction of the patient, or of later complication, without mention of misadventure at the time of the procedure; Y92.89 Other specified places as the place of occurrence of the external cause
CPT/HCPCS: 99284

== ENCOUNTER 2020-10-21 23:39 | Inpatient (IN) | payer MEDICARE, MEDICAID ==
[~2020-10-21] VITALS: Ht 154.9 cm; Wt 58.0 kg
[~2020-10-21 23:39] MED LIST changes: +XAL0.005OS EACHEYE; -XAL0.005OS OP
[2020-10-22 01:00] LABS: BASOPHILS % (AUTO) 0.5 % (0-1); EOSINOPHILS # (AUTO) 0.2 X10'3 (0-0.9); EOSINOPHILS % (AUTO) 2.9 % (0-6); HEMATOCRIT 36.6 % (35.0-45.0); HEMOGLOBIN 12.7 g/dl (12.0-16.0); LYMPHOCYTES # (AUTO) 1.7 X10'3 (1.1-4.8); LYMPHOCYTES % (AUTO) 28.2 % (21-51); MEAN CORPUSCULAR HGB CONC 34.7 g/dL (33.0-36.5); MEAN CORPUSCULAR VOLUME 92.2 FL (78-98); MEAN PLATELET VOLUME 7.4 FL (7.4-10.4); MONOCYTES # (AUTO) 0.5 X10'3 (0-0.9); MONOCYTES % (AUTO) 8.6 % (2-12); NEUTROPHILS # (AUTO) 3.5 X10'3 (1.8-7.7); NEUTROPHILS % (AUTO) 59.8 % (42-75); PLATELET COUNT 211 X10'3 (140-440); RED BLOOD COUNT 3.97 X10'6 (4.20-5.60); RED CELL DISTRIBUTION WIDTH 13.6 % (11.5-14.5); WHITE BLOOD COUNT 5.9 X10'3 (4.5-11.0)
--- NOTE | 2020-10-22 01:00 | NUR ---
PT ALOC, PULLING AT LINES, ADVISED NO NEW ORDERS. CONTINUED TO RE-DIRECT, PT AGITATED, ATTEMPTS TO SCRATCH AND BITE STAFF. RN REMAINS AT BEDSIDE ATTEMPTING TO VERBALLY CALM PT AND KEEP HER FROM PULLING OUT HER IV. DIFFICULT TO GET APPROPRIATE BP DUE TO PT BEING COMBATIVE.
[2020-10-22 01:08] LABS: ALANINE AMINOTRANSFERASE 8 U/L (12-78); ALBUMIN 3.6 G/DL (3.4-5.0); ALBUMIN/GLOBULIN RATIO 1.1 (1.1-1.5); ALKALINE PHOSPHATASE 127 IU/L (46-116); ANION GAP 4 (8-16); ASPARTATE AMINO TRANSFERASE 24 U/L (10-37); BILIRUBIN,TOTAL 0.4 MG/DL (0.1-1.0); BLOOD UREA NITROGEN 28 MG/DL (7-18); BUN/CREATININE RATIO 29.2 (6.6-38.0); CALCIUM 8.8 MG/DL (8.5-10.1); CHLORIDE 103 MMOL/L (99-107); CREATININE 0.96 MG/DL (0.40-0.90); GLUCOSE 115 MG/DL (70-104); SODIUM 138 MMOL/L (135-145); TOTAL CARBON DIOXIDE 30.8 MMOL/L (24-32); TOTAL PROTEIN 6.9 G/DL (6.4-8.2); eGFR 55 ML/MIN
[2020-10-22 01:11] LABS: TROPONIN I < 0.04 NG/ML (0.0-0.05)
[2020-10-22] MEDS ORDERED: labetalol 20mg/4ml (5mg/ml) syringe IV ONE (01:20)
[2020-10-22 01:30] LABS: CLARITY,URINE SLIGHTLY CLOUDY (Clear); COLOR,URINE YELLOW (Yellow); GLUCOSE, URINE NEGATIVE (Neg); KETONES,URINE NEGATIVE (Neg); LEUKOCYTE ESTERASE ,URINE NEGATIVE (Neg); NITRITES, URINE NEGATIVE (Neg); OCCULT BLOOD,URINE NEGATIVE (Neg); PROTEIN,URINE NEGATIVE (Neg); UROBILINOGEN,URINE 0.2 E.U/dL (0.2-1.0)
[2020-10-22 01:43] LABS: UA COLLECTION TYPE STRAIGHT CATH
[2020-10-22 01:44] LABS: AMORPHOUS PHOSPHATES 1+; BACTERIA,URINE NONE SEEN /HPF (Neg); RBC,URINE NONE SEEN /HPF (0-2); SQUAMOUS EPITHELIAL CELL,UR NONE SEEN /LPF (FEW); WBC,URINE NONE SEEN /HPF (0-4)
[2020-10-22] MEDS ORDERED: ziprasidone IM 20mg inj **IM only IM ONE (02:30)
[2020-10-22] MEDS ORDERED: CefTRIAXone/D5W-Rocephin 1gm 50 ML IV ONE (02:50)
[2020-10-22] MEDS ORDERED: magnesium 2GM in 50ml NS 50 ML IV PRN (03:50)
[2020-10-22] MEDS ORDERED: potassium Cl 20 mEq SR tablet PO PRN ×2 (03:50)
[2020-10-22] MEDS ORDERED: magnesium Cl slow-release 64mg tablet PO PRN (03:50)
[2020-10-22] MEDS ORDERED: acetaminophen 325mg tablet PO PRN (03:50)
[2020-10-22] MEDS ORDERED: mag hydrox/Alum hydrox/simeth 30ml oral suspension PO PRN (03:50)
[2020-10-22] MEDS ORDERED: magnesium 4gm in 100ml NS 100 ML IV PRN (03:50)
[2020-10-22] MEDS ORDERED: potassium Cl 40MEQ/1/2NS 520ml 520 ML IV PRN ×2 (03:50)
[2020-10-22] MEDS: normal saline 1000ml 1,000 ML IV SCH (04:09)
--- NOTE | 2020-10-22 06:46 | NUR ---
Patient in room ED 5. I have received report from gayla clemons and had the opportunity to ask questions and assume patient care.
[2020-10-22 07:16] VITALS: BP 199/83
[2020-10-22] MEDS ORDERED: heparin, porcine 5000 units/ml vial SQ SCH (08:00)
[2020-10-22] MEDS: K and/or MAG REPLACEMENT MC SCH ×2 (08:00→20:00)
[2020-10-22] MEDS: lisinopril 10 MG tablet PO SCH (08:00)
--- NOTE | 2020-10-22 09:00 | NUR ---
NOTIFIED DR LACY RE BP ELEVATED, 199/83. CONT TO MONITOR AT THIS TIME. PT UNABLE TO TAKE PO MEDS D/T VERY DROWSY STATE.
[2020-10-22] MEDS ORDERED: iohexol 300mg/ml 100ml inj. ONE (10:54)
[2020-10-22] MEDS ORDERED: CARB1TAB42 PO (13:33)
[2020-10-22 13:44] VITALS: BP 118/71
--- NOTE | 2020-10-22 14:14 | NUR ---
PAGED DR LACY RE: PAGER ID: [phone] MESSAGE: ALLIE HERNANDEZ. PTS DAUGHTER (POA) STATES THAT SHE IS A DNR. GREG [phone] PLEASE CLARIFY AND CHANGE STATUS. (SCREENS CALLS...LEAVE MSG)
[2020-10-22] MEDS ORDERED: diazepam 2mg tablet PO PRN (14:20)
[2020-10-22 18:00] VITALS: BP 152/64
--- NOTE | 2020-10-22 18:03 | NUR ---
PAGED DR LACY RE: PAGER ID: [phone] MESSAGE: [facility]. CAN I GET A DIET ORDER OR ST EVAL? PTS BEEN NPO. O/N BERNARD [id number]
--- NOTE | 2020-10-22 18:10 | NUR ---
Problems reprioritized. Patient report given, questions answered & plan of care reviewed with RAMANA VILLEGAS.
[2020-10-22] MEDS: latanoprost 0.005% 2.5ml ophthalmic drops EACHEYE SCH (20:04)
[2020-10-22] MEDS ORDERED: carbidopa/levodopa 50/200mg CR tablet PO SCH (21:00)
[2020-10-22 22:00] VITALS: BP 136/56
[2020-10-23] MEDS ORDERED: CefTRIAXone 2gm/D5W 50ml BAG 50 ML IV SCH (02:00)
[2020-10-23] MEDS: normal saline 1000ml 1,000 ML IV SCH ×2 (04:06→07:43)
[2020-10-23 06:41] VITALS: BP 155/61
[2020-10-23] MEDS: lisinopril 10 MG tablet PO SCH (07:40)
[2020-10-23] MEDS: rivaroxaban 15mg tablet PO SCH ×2 (07:40→18:00)
[2020-10-23 07:41] LABS: BASOPHILS % (AUTO) 0.4 % (0-1); EOSINOPHILS % (AUTO) 0.8 % (0-6); HEMATOCRIT 39.2 % (35.0-45.0); HEMOGLOBIN 13.2 g/dl (12.0-16.0); LYMPHOCYTES # (AUTO) 1.2 X10'3 (1.1-4.8); LYMPHOCYTES % (AUTO) 22.3 % (21-51); MEAN CORPUSCULAR HEMOGLOBIN 31.5 PG (27.0-31.0); MEAN CORPUSCULAR HGB CONC 33.6 g/dL (33.0-36.5); MEAN CORPUSCULAR VOLUME 93.7 FL (78-98); MEAN PLATELET VOLUME 7.1 FL (7.4-10.4); MONOCYTES # (AUTO) 0.5 X10'3 (0-0.9); MONOCYTES % (AUTO) 9.4 % (2-12); NEUTROPHILS # (AUTO) 3.8 X10'3 (1.8-7.7); NEUTROPHILS % (AUTO) 67.1 % (42-75); PLATELET COUNT 215 X10'3 (140-440); RED BLOOD COUNT 4.18 X10'6 (4.20-5.60); RED CELL DISTRIBUTION WIDTH 13.7 % (11.5-14.5); WHITE BLOOD COUNT 5.6 X10'3 (4.5-11.0)
[2020-10-23] MEDS: K and/or MAG REPLACEMENT MC SCH ×2 (08:00→19:51)
[2020-10-23 08:07] LABS: ALANINE AMINOTRANSFERASE 25 U/L (12-78); ALBUMIN 3.1 G/DL (3.4-5.0); ALBUMIN/GLOBULIN RATIO 0.9 (1.1-1.5); ALKALINE PHOSPHATASE 78 IU/L (46-116); ANION GAP 5 (8-16); ASPARTATE AMINO TRANSFERASE 28 U/L (10-37); BILIRUBIN,TOTAL 0.4 MG/DL (0.1-1.0); BLOOD UREA NITROGEN 25 MG/DL (7-18); CALCIUM 8.1 MG/DL (8.5-10.1); CHLORIDE 107 MMOL/L (99-107); CREATININE 0.96 MG/DL (0.40-0.90); GLUCOSE 96 MG/DL (70-104); MAGNESIUM 2.2 MG/DL (1.5-2.4); POTASSIUM 3.5 MMOL/L (3.5-5.1); SODIUM 141 MMOL/L (135-145); TOTAL CARBON DIOXIDE 28.8 MMOL/L (24-32); TOTAL PROTEIN 6.5 G/DL (6.4-8.2); eGFR 55 ML/MIN
[2020-10-23 11:24] VITALS: BP 164/66
[2020-10-23] MEDS: ondansetron/PF 4mg/2ml inj IV PRN ×2 (14:07→19:57)
[2020-10-23 18:00] VITALS: BP 170/67
[2020-10-23 18:05] VITALS: BP_SYST 155; BP_SYST 159; BP_DIAS 64; BP_DIAS 66
--- NOTE | 2020-10-23 18:25 | NUR ---
Problems reprioritized. Patient report given, questions answered & plan of care reviewed with DARCY VILLEGAS.
--- NOTE | 2020-10-23 18:50 | NUR ---
Patient in room ORTHO 4009. I have received report from BAKARI Crook and had the opportunity to ask questions and assume patient care.
[2020-10-23] MEDS: magnesium hydroxide 30ml (MOM) UD suspension PO PRN (19:57)
[2020-10-23] MEDS: latanoprost 0.005% 2.5ml ophthalmic drops EACHEYE SCH (19:57)
[2020-10-23 22:00] VITALS: BP 144/66
[2020-10-24] MEDS: acetaminophen 325mg tablet PO PRN ×3 (00:27→18:00)
[2020-10-24] MEDS: normal saline 1000ml 1,000 ML IV SCH (02:53)
[2020-10-24 06:00] VITALS: BP 132/60
--- NOTE | 2020-10-24 06:24 | NUR ---
Problems reprioritized. Patient report given, questions answered & plan of care reviewed with BAKARI Alarcon.
--- NOTE | 2020-10-24 06:36 | NUR ---
Patient in room ORTHO 4009. I have received report from Bess clemons and had the opportunity to ask questions and assume patient care.
[2020-10-24 06:53] LABS: BASOPHILS % (AUTO) 0.6 % (0-1); EOSINOPHILS # (AUTO) 0.1 X10'3 (0-0.9); EOSINOPHILS % (AUTO) 1.3 % (0-6); HEMATOCRIT 37.5 % (35.0-45.0); HEMOGLOBIN 12.7 g/dl (12.0-16.0); LYMPHOCYTES # (AUTO) 1.4 X10'3 (1.1-4.8); LYMPHOCYTES % (AUTO) 24.6 % (21-51); MEAN CORPUSCULAR HEMOGLOBIN 31.5 PG (27.0-31.0); MEAN CORPUSCULAR VOLUME 92.8 FL (78-98); MEAN PLATELET VOLUME 6.8 FL (7.4-10.4); MONOCYTES # (AUTO) 0.5 X10'3 (0-0.9); MONOCYTES % (AUTO) 8.9 % (2-12); NEUTROPHILS # (AUTO) 3.5 X10'3 (1.8-7.7); NEUTROPHILS % (AUTO) 64.6 % (42-75); PLATELET COUNT 204 X10'3 (140-440); RED BLOOD COUNT 4.04 X10'6 (4.20-5.60); RED CELL DISTRIBUTION WIDTH 13.6 % (11.5-14.5); WHITE BLOOD COUNT 5.5 X10'3 (4.5-11.0)
[2020-10-24 07:17] LABS: ALANINE AMINOTRANSFERASE 6 U/L (12-78); ALBUMIN 2.9 G/DL (3.4-5.0); ALBUMIN/GLOBULIN RATIO 0.9 (1.1-1.5); ALKALINE PHOSPHATASE 75 IU/L (46-116); ANION GAP 3 (8-16); ASPARTATE AMINO TRANSFERASE 33 U/L (10-37); BILIRUBIN,TOTAL 0.5 MG/DL (0.1-1.0); BLOOD UREA NITROGEN 21 MG/DL (7-18); BUN/CREATININE RATIO 25.9 (6.6-38.0); CALCIUM 8.1 MG/DL (8.5-10.1); CHLORIDE 108 MMOL/L (99-107); CREATININE 0.81 MG/DL (0.40-0.90); GLUCOSE 95 MG/DL (70-104); MAGNESIUM 2.4 MG/DL (1.5-2.4); POTASSIUM 3.9 MMOL/L (3.5-5.1); SODIUM 143 MMOL/L (135-145); TOTAL CARBON DIOXIDE 31.8 MMOL/L (24-32); TOTAL PROTEIN 6.1 G/DL (6.4-8.2); eGFR 67 ML/MIN
[2020-10-24] MEDS: lisinopril 10 MG tablet PO SCH (07:46)
[2020-10-24] MEDS: K and/or MAG REPLACEMENT MC SCH ×2 (07:49→20:00)
[2020-10-24 10:00] VITALS: BP 139/64
[2020-10-24] MEDS: ondansetron/PF 4mg/2ml inj IV PRN ×2 (11:20→19:16)
[2020-10-24] MEDS: magnesium hydroxide 30ml (MOM) UD suspension PO PRN (13:12)
[2020-10-24] MEDS ORDERED: bisacodyl 10mg suppository rectal RC ONE ×2 (14:00→15:00)
[2020-10-24 18:00] VITALS: BP 165/65
[2020-10-24] MEDS: rivaroxaban 15mg tablet PO SCH (18:33)
--- NOTE | 2020-10-24 18:41 | NUR ---
Problems reprioritized. Patient report given, questions answered & plan of care reviewed with elyssa clemons.
--- NOTE | 2020-10-24 19:01 | NUR ---
Patient in room ORTHO 4009. I have received report from Agnes VILLEGAS and had the opportunity to ask questions and assume patient care.
[2020-10-24] MEDS: latanoprost 0.005% 2.5ml ophthalmic drops EACHEYE SCH (20:50)
[2020-10-24 22:00] VITALS: BP 140/60
[2020-10-25] MEDS: normal saline 1000ml 1,000 ML IV SCH (02:13)
[2020-10-25 06:30] VITALS: BP 159/60
--- NOTE | 2020-10-25 06:30 | NUR ---
Patient in room ORTHO 4009. I have received report from elyssa clemons and had the opportunity to ask questions and assume patient care.
[2020-10-25 06:34] LABS: BASOPHILS % (AUTO) 0.5 % (0-1); EOSINOPHILS # (AUTO) 0.1 X10'3 (0-0.9); HEMOGLOBIN 13.1 g/dl (12.0-16.0); LYMPHOCYTES # (AUTO) 1.5 X10'3 (1.1-4.8); LYMPHOCYTES % (AUTO) 27.1 % (21-51); MEAN CORPUSCULAR HEMOGLOBIN 31.7 PG (27.0-31.0); MEAN CORPUSCULAR HGB CONC 34.4 g/dL (33.0-36.5); MEAN CORPUSCULAR VOLUME 92.3 FL (78-98); MONOCYTES # (AUTO) 0.4 X10'3 (0-0.9); MONOCYTES % (AUTO) 7.7 % (2-12); NEUTROPHILS # (AUTO) 3.4 X10'3 (1.8-7.7); NEUTROPHILS % (AUTO) 62.7 % (42-75); PLATELET COUNT 220 X10'3 (140-440); RED BLOOD COUNT 4.12 X10'6 (4.20-5.60); RED CELL DISTRIBUTION WIDTH 13.4 % (11.5-14.5); WHITE BLOOD COUNT 5.4 X10'3 (4.5-11.0)
--- NOTE | 2020-10-25 06:34 | NUR ---
Problems reprioritized. Patient report given, questions answered & plan of care reviewed with Agnes VILLEGAS.
[2020-10-25 07:07] LABS: ALANINE AMINOTRANSFERASE 8 U/L (12-78); ALBUMIN 3.2 G/DL (3.4-5.0); ALKALINE PHOSPHATASE 75 IU/L (46-116); ANION GAP 4 (8-16); ASPARTATE AMINO TRANSFERASE 36 U/L (10-37); BILIRUBIN,TOTAL 0.7 MG/DL (0.1-1.0); BLOOD UREA NITROGEN 14 MG/DL (7-18); BUN/CREATININE RATIO 16.1 (6.6-38.0); CALCIUM 8.2 MG/DL (8.5-10.1); CHLORIDE 106 MMOL/L (99-107); CREATININE 0.87 MG/DL (0.40-0.90); GLUCOSE 88 MG/DL (70-104); MAGNESIUM 2.3 MG/DL (1.5-2.4); POTASSIUM 3.6 MMOL/L (3.5-5.1); SODIUM 142 MMOL/L (135-145); TOTAL PROTEIN 6.5 G/DL (6.4-8.2); eGFR 61 ML/MIN
[2020-10-25] MEDS: acetaminophen 325mg tablet PO PRN (07:33)
[2020-10-25] MEDS: lisinopril 10 MG tablet PO SCH (07:34)
[2020-10-25] MEDS: ondansetron/PF 4mg/2ml inj IV PRN (07:41)
[2020-10-25] MEDS: K and/or MAG REPLACEMENT MC SCH (07:44)
[2020-10-25 10:00] VITALS: BP 138/48
[2020-10-25] MEDS ORDERED: LISI10TA27 PO (11:18)
--- NOTE | 2020-10-25 12:35 | NUR ---
Pt discharged [facility] at 1225. Pt belongings sent with patient. Iv removed, no complications. Pt discharged with daughter in stable condition to home in private vehicle.
== END 2020-10-25 12:30 | disposition home health service (06) | DRG 64 ==
LOC: ER 23:39 → ED HOLD 10-22 03:51 → ORTHO 4S 10-22 06:55
PROVIDERS: ADMIT Internal Medicine; ATTEND Family Medicine
PROC: 4A10X4Z Monitoring of Central Nervous Electrical Activity, External Approach (ICD-10-PCS; principal; 2020-10-24)
DX: I63.81 Other cerebral infarction due to occlusion or stenosis of small artery (principal); G93.41 Metabolic encephalopathy; J18.9 Pneumonia, unspecified organism; I48.20 Chronic atrial fibrillation, unspecified; G93.40 Encephalopathy, unspecified; R55 Syncope and collapse; G20 Parkinson's disease; G40.909 Epilepsy, unspecified, not intractable, without status epilepticus; I11.0 Hypertensive heart disease with heart failure; R44.1 Visual hallucinations; Z20.822 Contact with and (suspected) exposure to COVID-19; I50.9 Heart failure, unspecified; Z60.2 Problems related to living alone; M79.7 Fibromyalgia; W18.39XA Other fall on same level, initial encounter; Z79.01 Long term (current) use of anticoagulants; Z80.9 Family history of malignant neoplasm, unspecified; Z83.3 Family history of diabetes mellitus; Z86.73 Personal history of transient ischemic attack (TIA), and cerebral infarction without residual deficits; Z88.0 Allergy status to penicillin; Z88.2 Allergy status to sulfonamides; Z88.8 Allergy status to other drugs, medicaments and biological substances; Z88.5 Allergy status to narcotic agent; Z86.718 Personal history of other venous thrombosis and embolism; Z90.49 Acquired absence of other specified parts of digestive tract; Z82.49 Family history of ischemic heart disease and other diseases of the circulatory system; Z79.899 Other long term (current) drug therapy; Y93.89 Activity, other specified; Y92.098 Other place in other non-institutional residence as the place of occurrence of the external cause; Y99.8 Other external cause status
CPT/HCPCS: 36415; 70450; 70551; 71045; 71260; 72125; 72128; 72131; 80053; 81001; 83605; 83735; 84145; 84484; 85025; 85651; 87040; 87081; 87635; 95816; 97161; 97530; 97535; 99285; G0378; J0696; J2405; J3486; J7030; Q9967